=== PATIENT | male | born 1960 | race Caucasian/White ===

== ENCOUNTER 2022-01-27 12:39 | Emergency (ER) | payer OTHER ==
[2022-01-27 13:00] VITALS: BMI 39.0
[2022-01-27] MEDS ORDERED: SOTROVIMAB 500 MG in SODIUM CHLORIDE 100 ML IVPB ONE (13:07)
[2022-01-27] MEDS ORDERED: BEBTELOVIMAB (EUA) 175 MG/2 ML VIAL IVPUSH ONE (13:46)
[2022-01-27 16:55] VITALS: BP 136/57; PULSE 68; TEMP 98.7
[2022-01-28 05:08] LABS: SARS-CoV-2 NAA Detected (Not Detected)
== END 2022-01-27 16:55 | disposition home or self-care (01) ==
LOC: JCOVINFU 12:39
DX: U07.1 COVID-19 (principal)
CPT/HCPCS: 99284-25; C9803-CS; U0003; U0005